=== PATIENT | male | born 2000 | race Asian ===

== ENCOUNTER 2022-12-29 21:36 | Emergency (ER) | payer OTHER ==
[~2022-12-29] VITALS: Ht 170.2 cm; Wt 63.5 kg
[~2022-12-29 21:36] MED LIST: ALBU90OI6 INH; FLUT44OIA IH; MONT10T PO
[2022-12-29 23:32] VITALS: BP 101/78
[2022-12-29] MEDS ORDERED: Prednisone20 MG PO (23:34)
== END 2022-12-29 23:42 | disposition home or self-care (01) ==
LOC: ER 21:36
DX: J45.901 Unspecified asthma with (acute) exacerbation (principal)
CPT/HCPCS: 71045; 94644; 94664; 96374; 99285-25; A9270; J2930